=== PATIENT | male | born 1945 | race Caucasian/White ===

== ENCOUNTER 2018-06-19 02:53 | Emergency (ER) | payer OTHER, MEDICARE ==
[~2018-06-19] VITALS: Ht 182.9 cm; Wt 95.2 kg
[~2018-06-19 02:53] MED LIST: ACET500 PO; ACID REDUCER 1150 MG PO; AMLO10 PO; ASPI81CH PO; FINA5 PO; LISI20 PO; MELO7.5 PO; METF500C PO; METO25ER PO; OMEPRAZOLE MAGN20 MG PO; PRAV20 PO; PRAZ1 PO; TAMS.4ER PO; TRAZ100 PO
[2018-06-19 03:30] LABS: Calcium, Ionized (POC) 1.01 mmol/L (1.10-1.46); Chloride (POC) 108 mmol/L (98-108); Creatinine (POC) 1.4 mg/dL (0.8-1.3); Glucose (ISTAT POC) 260 mg/dL (70-99); Hemoglobin (POC) 11.9 g/dL (13.5-17.5); Potassium (POC) 4.8 mmol/L (3.5-5.5); Sodium (POC) 137 mmol/L (135-148); Total CO2 (POC) 19 mmol/L (21-32)
[2018-06-19] MEDS ORDERED: ACET500 (04:19)
[2018-06-19] MEDS ORDERED: ADAL40PEN (04:19)
[2018-06-19] MEDS ORDERED: ASPI81CH PO (04:20)
[2018-06-19] MEDS ORDERED: Vitamin C100 M1 PO (04:20)
[2018-06-19] MEDS ORDERED: MELO7.5 PO (04:22)
[2018-06-19] MEDS ORDERED: FINA5 PO (04:23)
== END 2018-06-19 03:25 ==
LOC: ER 02:53 → ICUW 03:11 → ER 03:11
PROVIDERS: Internal Medicine Interventional Cardiology
DX: R07.9 Chest pain, unspecified (principal); Z79.899 Other long term (current) drug therapy; Z79.84 Long term (current) use of oral hypoglycemic drugs; Z79.82 Long term (current) use of aspirin
CPT/HCPCS: 31500; 80047; 85014; 92950; 93005; 93010; 96374; 96375; 99285-25; J0282; J1265; J1644; J2250; J2405; J3010; J3475; J7030